=== PATIENT | male | born 1975 | race American Indian/Alaskan Native ===

== ENCOUNTER 2017-07-16 02:27 | Inpatient (IN) | payer OTHER ==
[2017-07-16 04:14] LABS: Basophils % (Auto) 0.7 % (0.0-1.8); Eosinophils % (Auto) 4.6 % (0.0-4.3); Hemoglobin 14.6 gm/dl (11.8-15.2); Mean Corpuscular HGB Conc 33 % (32-34); Mean Corpuscular Hemoglobin 29 pg (28-32); Mean Corpuscular Volume 89 fl (84-94); Platelet Count 276 K/mm3 (140-440); Red Blood Count 4.96 M/mm3 (3.65-5.03); Red Cell Distribution Width 13.3 % (13.2-15.2); White Blood Count 10.5 K/mm3 (4.5-11.0)
[2017-07-16 04:37] LABS: Alanine Aminotransferase 19 units/L (7-56); Albumin 3.9 g/dL (3.9-5); Albumin/Globulin Ratio 1.1 %; Alkaline Phosphatase 62 units/L (35-129); Anion Gap 16 mmol/L; BUN/Creatinine Ratio 11; Blood Urea Nitrogen 9 mg/dL (9-20); Calcium 8.6 mg/dL (8.4-10.2); Carbon Dioxide 26 mmol/L (22-30); Chloride 97.7 mmol/L (98-107); Glucose 319 mg/dL (75-100); Potassium 4.1 mmol/L (3.6-5.0); Sodium 136 mmol/L (137-145); Total Protein 7.3 g/dL (6.3-8.2)
[2017-07-16 04:44] LABS: Bilirubin,Urine Negative (Negative); Blood,Urine Negative (Negative); Ketones,Urine Negative (Negative); Nitrite,Urine Negative (Negative); Protein,Urine <15 mg/dL mg/dL (Negative); Urobilinogen,Urine < 2.0 mg/dL (<2.0)
[2017-07-16 04:45] LABS: Leukocyte Esterase,Urine Negative (Negative)
[2017-07-16 05:05] LABS: Lipase 649 units/L (13-60)
[2017-07-16] MEDS ORDERED: ZOFRAN IV ONE (06:37)
[2017-07-16] MEDS ORDERED: SUBLIMAZE IV ONE (06:37)
[2017-07-16] MEDS ORDERED: BENTYL IM ONE (06:37)
[2017-07-16] MEDS ORDERED: NACL 0.9% 1000 ML 1,000 ML IV ONE (06:37)
--- NOTE | 2017-07-16 06:42 | Emergency Department Report ---
HPI - General Chief Complaint: Abdominal Pain Time Seen by Provider: 07/16/17 06:29 - HPI HPI: Room 5 The patient is a 41-year-old male presenting with a chief complaint of abdominal pain. The patient states for the past 4-5 days she's had pain in the midepigastric, right upper quadrant described as twisting in nature. Patient states the pain has been constant. Patient denies nausea/vomiting but admits to constipation, belching and passing flatus. Patient states she's had a cough which makes his abdomen hurt. Patient missed urinary frequency. The patient gets his pain a score of 10/10 Location: Abdomen, see above Duration: 4-5 days Quality: Twisting Severity:10/10 Modifying factors: [see above] Context: [see above] Mode of transportation: Unknown ED Past Medical Hx - Past Medical History Previous Medical History?: Yes Hx Hypertension: Yes Hx Diabetes: Yes (borderline and on no medication) Hx Deep Vein Thrombosis: Yes Hx Asthma: Yes - Surgical History Past Surgical History?: Yes Additional Surgical History: Cervical discectomy - Family History Family history: no significant - Social History Smoking Status: Former Smoker (none 1 month) Substance Use Type: None - Medications Home Medications: Home Medications Medication Instructions Recorded Confirmed Last Taken Type Warfarin Sodium [Coumadin] 6 mg PO QDAY #30 tablet 01/19/14 01/29/14 01/29/14 Rx oxyCODONE /ACETAMINOPHEN [Percocet 1 tab PO Q6HR PRN #14 tablet 01/29/14 Unknown Rx 5/325 mg] HYDROcodone/APAP 10-325 [[place] 1 each PO Q6HR PRN #16 tablet 08/30/14 Unknown Rx 10-325 mg TAB] Sulfamethoxazole/Trimethoprim 1 each PO Q12H #20 tablet 08/30/14 Unknown Rx [Bactrim Ds] Acetaminophen/Codeine [Tylenol #3] 1 tab PO Q6H PRN #6 tab 08/15/16 Unknown Rx Cephalexin [Keflex] 500 mg PO Q8HR #15 cap 08/15/16 Unknown Rx ED Review of Systems ROS: Stated complaint: ABD PAIN Other details as noted in HPI Comment: All other systems reviewed and negative Constitutional: denies: chills, fever Eyes: denies: eye pain, eye discharge, vision change ENT: denies: ear pain, throat pain Respiratory: cough Cardiovascular: denies: chest pain, palpitations Endocrine: no symptoms reported Gastrointestinal: abdominal pain, constipation. denies: nausea, vomiting Genitourinary: frequency Musculoskeletal: denies: back pain, joint swelling, arthralgia Skin: denies: rash, lesions Neurological: denies: headache, weakness, paresthesias Psychiatric: denies: anxiety, depression Hematological/Lymphatic: denies: easy bleeding, easy bruising Physical Exam - Physical Exam Vital Signs: Vital Signs 07/16/17 07/16/17 07/16/17 02:33 04:12 04:14 Temperature 99 F Pulse Rate 80 Respiratory 18 Rate Blood Pressure 117/77 119/81 Blood Pressure 117/71 [Right] O2 Sat by Pulse 98 100 99 Oximetry 07/16/17 07/16/17 07/16/17 04:16 04:18 04:20 Temperature Pulse Rate Respiratory Rate Blood Pressure 119/81 119/81 119/81 Blood Pressure [Right] O2 Sat by Pulse 95 96 95 Oximetry 07/16/17 07/16/17 07/16/17 04:22 04:24 04:26 Temperature Pulse Rate Respiratory Rate Blood Pressure 119/81 119/81 119/81 Blood Pressure [Right] O2 Sat by Pulse 97 96 97 Oximetry 07/16/17 07/16/17 07/16/17 04:28 04:30 04:32 Temperature Pulse Rate Respiratory Rate Blood Pressure 119/81 119/81 119/81 Blood Pressure [Right] O2 Sat by Pulse 97 98 98 Oximetry 07/16/17 07/16/17 07/16/17 04:34 04:35 04:36 Temperature Pulse Rate Respiratory 18 Rate Blood Pressure 119/81 119/81 Blood Pressure [Right] O2 Sat by Pulse 98 99 98 Oximetry 07/16/17 07/16/17 07/16/17 04:38 04:40 04:42 Temperature Pulse Rate Respiratory Rate Blood Pressure 119/81 119/81 119/81 Blood Pressure [Right] O2 Sat by Pulse 98 97 95 Oximetry 07/16/17 07/16/17 07/16/17 04:44 04:46 04:48 Temperature Pulse Rate Respiratory Rate Blood Pressure 119/81 119/81 119/81 Blood Pressure [Right] O2 Sat by Pulse 97 98 98 Oximetry 07/16/17 07/16/17 04:50 04:52 Temperature Pulse Rate Respiratory Rate Blood Pressure 119/81 119/81 Blood Pressure [Right] O2 Sat by Pulse 98 98 Oximetry Physical Exam: GENERAL: The patient is well-developed well-nourished male lying on stretcher not appearing to be in acute distress. [] HEENT: Normocephalic. Atraumatic. Extraocular motions are intact. Patient has moist mucous membranes. NECK: Supple. Trachea midline CHEST/LUNGS: Clear to auscultation. There is no respiratory distress noted. HEART/CARDIOVASCULAR: Regular. There is no tachycardia. There is no gallop rub or murmur. ABDOMEN: Abdomen is soft, with tenderness to palpation in the right upper quadrant and epigastric region. There is no tenderness elsewhere in the abdomen. There is no voluntary guarding. Patient has normal bowel sounds. There is no abdominal distention. SKIN: There is no rash. There is no edema. There is no diaphoresis. NEURO: The patient is awake, alert, and oriented. The patient is cooperative. The patient has normal speech MUSCULOSKELETAL:There is no evidence of acute injury. ED Course Vital Signs 07/16/17 07/16/17 07/16/17 02:33 04:12 04:14 Temperature 99 F Pulse Rate 80 Respiratory 18 Rate Blood Pressure 117/77 119/81 Blood Pressure 117/71 [Right] O2 Sat by Pulse 98 100 99 Oximetry 07/16/17 07/16/17 07/16/17 04:16 04:18 04:20 Temperature Pulse Rate Respiratory Rate Blood Pressure 119/81 119/81 119/81 Blood Pressure [Right] O2 Sat by Pulse 95 96 95 Oximetry 07/16/17 07/16/17 07/16/17 04:22 04:24 04:26 Temperature Pulse Rate Respiratory Rate Blood Pressure 119/81 119/81 119/81 Blood Pressure [Right] O2 Sat by Pulse 97 96 97 Oximetry 07/16/17 07/16/17 07/16/17 04:28 04:30 04:32 Temperature Pulse Rate Respiratory Rate Blood Pressure 119/81 119/81 119/81 Blood Pressure [Right] O2 Sat by Pulse 97 98 98 Oximetry 07/16/17 07/16/17 07/16/17 04:34 04:35 04:36 Temperature Pulse Rate Respiratory 18 Rate Blood Pressure 119/81 119/81 Blood Pressure [Right] O2 Sat by Pulse 98 99 98 Oximetry 07/16/17 07/16/17 07/16/17 04:38 04:40 04:42 Temperature Pulse Rate Respiratory Rate Blood Pressure 119/81 119/81 119/81 Blood Pressure [Right] O2 Sat by Pulse 98 97 95 Oximetry 07/16/17 07/16/17 07/16/17 04:44 04:46 04:48 Temperature Pulse Rate Respiratory Rate Blood Pressure 119/81 119/81 119/81 Blood Pressure [Right] O2 Sat by Pulse 97 98 98 Oximetry 07/16/17 07/16/17 04:50 04:52 Temperature Pulse Rate Respiratory Rate Blood Pressure 119/81 119/81 Blood Pressure [Right] O2 Sat by Pulse 98 98 Oximetry ED Medical Decision Making - Lab Data Result diagrams: 07/16/17 03:47 07/16/17 03:47 Laboratory Tests 07/16/17 07/16/17 07/16/17 03:47 03:47 03:48 WBC 10.5 RBC 4.96 Hgb 14.6 Hct 44.0 MCV 89 MCH 29 MCHC 33 RDW 13.3 Plt Count 276 Lymph % (Auto) 24.3 [place] % (Auto) 7.1 Eos % (Auto) 4.6 H Baso % (Auto) 0.7 Lymph # 2.5 Nance # 0.7 Eos # 0.5 H Baso # 0.1 Seg Neutrophils % 63.3 Seg Neutrophils # 6.6 Sodium 136 L Potassium 4.1 Chloride 97.7 L Carbon Dioxide 26 Anion Gap 16 BUN 9 Creatinine 0.8 Estimated GFR > 60 BUN/Creatinine Ratio 11 Glucose 319 H Calcium 8.6 Total Bilirubin 0.50 AST 14 ALT 19 Alkaline Phosphatase 62 Total Protein 7.3 Albumin 3.9 Albumin/Globulin Ratio 1.1 Lipase 649 H Urine Color Yellow Urine Turbidity Cloudy Urine pH 5.0 Ur Specific [place] 1.030 Urine Protein <15 mg/dl Urine Glucose (UA) >500 Urine Ketones Negative Urine Blood Negative Urine Nitrite Negative Ur Reducing Substances Not Reportable Urine Bilirubin Negative Urine Ictotest Not Reportable Urine Urobilinogen < 2.0 Ur Leukocyte Esterase Negative Urine WBC (Auto) 1.0 Urine RBC (Auto) 1.0 U Epithel Cells (Auto) 1.0 - EKG Data -: EKG Interpreted by [place] EKG shows normal: sinus rhythm Rate: normal - EKG Data When compared to previous EKG there are: previous EKG unavailable Interpretation: nonspecific ST-T wave maryam (T-wave inversion in lead 3) - Radiology Data Radiology results: report reviewed (right upper quadrant ultrasound), image reviewed (chest x-ray, right upper quadrant ultrasound) interpreted by me: Chest x-ray-no focal infiltrates, no pneumothorax Right upper quadrant ultrasound (regular radiologist)-sludge in the gallbladder without additional findings of cholecystitis. Consider nuclear medicine hepatobiliary scan for more specific evaluation is warranted. - Differential Diagnosis biliary pancreatitis, pancreatitis, gastritis, small bowel obstruction Critical care attestation.: If time is entered above; I have spent that time in minutes in the direct care of this critically ill patient, excluding procedure time. ED Disposition Clinical Impression: Acute pancreatitis, Acute abdominal pain Disposition: OP ADMIT IP TO THIS HOSP Is pt being admited?: Yes Does the pt Need Aspirin: No Condition: Fair Referrals: PRIMARY CARE, [Primary Care Provider] - 3-5 Days Time of Disposition: 08:35 (hospitalist paged)
[2017-07-16 07:35] LABS: INR 0.97 (0.87-1.13)
[2017-07-16 07:36] LABS: Partial Thromboplastin Time 28.1 Sec. (24.2-36.6)
--- NOTE | 2017-07-16 08:11 | XRay Report ---
ROUTINE CHEST, TWO VIEWS: History: Dyspnea. PA and lateral views demonstrate the heart and mediastinal contour to be of normal size and shape. The lungs are clear and fully expanded and the soft tissues and bony structures are normal. IMPRESSION: Normal study.
--- NOTE | 2017-07-16 08:25 | Ultrasound Report ---
FINAL REPORT EXAM: US ABDOMEN LIMITED HISTORY: right upper quadrant abdominal pain COMPARISONS: None FINDINGS: Grayscale and color Doppler ultrasound evaluation of the right upper abdomen Liver is normal in size and contour. Hepatic parenchymal echogenicity is diffusely increased with focal sparing adjacent to the gallbladder. No parenchymal lesion identified. No intra or extrahepatic biliary ductal dilatation. The common duct measures approximately 5 millimeters in caliber. Layering sludge is present within the gallbladder. No focal echogenic shadowing foci to suggest cholelithiasis. Gallbladder wall measures up to 2 millimeters in thickness. No pericholecystic edema identified. Imaged portion of the pancreatic head is sonographically unremarkable. The remainder of the pancreas is not well seen secondary to overlying bowel gas. The imaged portion of the abdominal aorta is unremarkable. No abdominal ascites or free fluid in Morison's pouch. The right kidney measures up to 12.8 cm in length and is without hydronephrosis or echogenic shadowing foci to suggest nephrolithiasis. Interpolar corticomedullary heterogeneous prominence with internal flow on color Doppler measures approximately 3.6 x 2.8 x 3.6 cm. IMPRESSION: Sludge in the gallbladder without additional findings of cholecystitis. Consider nuclear medicine hepatobiliary scan for more specific evaluation as warranted. Hepatic steatosis. Right kidney interpolar 3.6 centimeter mass versus cortical anatomic variant. Multi phase renal CT versus MRI with contrast is recommended for further evaluation.
--- NOTE | 2017-07-16 09:24 | History and Physical Report ---
<STALIN CHARLES - Last Filed: 07/16/17 15:32> History of Present Illness Date of examination: 07/16/17 Date of admission: 07/16/2017 Chief complaint: Abdominal pain History of present illness: Patient is a 41-year-old Afriacn [place] male with past medical history diabetes mellitus who presenting to the emergency department with a chief complaint of abdominal pain. He began having intermittent RUQ abdominal pain that initially felt like gas pains but it has now progressed to being nearly constant. For the Past Six days of coughing up mucus. Finding it hard to talk or breath a times. Feeling pressure on his stomach; like gas is building up and having very little stool, tried pushing forcefully not helping. Patient stated that belching throughout the day even when i don't drink anything. Patient to took stool softener and magnesium citrate with improvement, just a small amount of stool today 7AM. His last bowel movement was over 7 days ago. Currently, the pain is described as a intermittently sharp and well localized. The intensity of the pain has been increasing over the past two days and rated his pain level score of 10/10 at present time. He denies a recent history of fever, jaundice, pruritis, diarrhea, hemoptysis, melena, or hematochezia. He denies a known history of, colon cancer, peptic ulcer disease, gastritis, acid reflux. He has history of cholecystectomy. He denies smoking and alcohol consumption. h Past History Past Medical History: diabetes Past Surgical History: No surgical history Social history: denies: smoking, alcohol abuse Family history: hypertension Medications and Allergies Allergies Allergy/AdvReac Type Severity Reaction Status Date / Time shellfish derived Allergy Angioedema Verified 08/15/16 00:27 Home Medications Medication Instructions Recorded Confirmed Last Taken Type No Known Home Medications [No 07/16/17 07/16/17 Unknown History Reported Home Medications] Active Meds: Active Medications Acetaminophen (Tylenol) 650 mg PO Q4H PRN PRN Reason: Pain MILD(1-3)/Fever >100.5/VILLALOBOS Bisacodyl (Dulcolax) 10 mg AR QDAY PRN PRN Reason: Constipation unrelieved by MOM Enoxaparin Sodium (Lovenox) 40 mg SUB-Q DAILY JEREMIAH Sodium Chloride (Nacl 0.9% 1000 Ml) 1,000 mls @ 250 mls/hr IV ONCE ONE Stop: 07/16/17 10:36 Last Admin: 07/16/17 07:30 Dose: 250 mls/hr Sodium Chloride (Nacl 0.9% 1000 Ml) 1,000 mls @ 125 mls/hr IV DIRECT JEREMIAH Review of Systems Constitutional: no weight gain, no fever, no chills Ears, nose, mouth and throat: no ear discharge, no tinnitis, no decreased hearing, no nasal congestion, no nasal discharge Cardiovascular: no orthopnea, no palpitations, no rapid/irregular heart beat, no syncope Respiratory: shortness of breath, no excessive sputum Gastrointestinal: abdominal pain, nausea, constipation, change in bowel habits, heartburn, indigestion, belching, excessive gas Rectal: no incontinence, no bleeding Musculoskeletal: no neck pain Integumentary: no redness, no sores, no jaundice Neurological: no weakness, no parathesias Psychiatric: no change in sleep habits, no sleep disturbances, no insomnia, no hypersomnia Endocrine: no polyphagia, no excessive thirst, no polydipsia, no polyuria Hematologic/Lymphatic: no easy bruising, no easy bleeding Allergic/Immunologic: no urticaria, no allergic rhinitis Exam - Constitutional Vitals: Temp Pulse Resp BP Pulse Ox 99 F 69 18 123/86 97 07/16/17 02:33 07/16/17 07:38 07/16/17 07:38 07/16/17 07:38 07/16/17 07:38 General appearance: Present: no acute distress - EENT Eyes: Present: PERRL ENT: hearing intact - Neck Neck: Present: supple - Respiratory Respiratory effort: normal Respiratory: bilateral: CTA - Cardiovascular Rhythm: regular Heart Sounds: Present: S1 & S2 - Abdominal General gastrointestinal: Present: soft, non-tender Localized gastrointestinal: tender: RUQ Male genitourinary: Present: deferred - Rectal Rectal Exam: deferred - Integumentary Integumentary: Present: clear, warm, dry - Musculoskeletal Musculoskeletal: strength equal bilaterally - Psychiatric Psychiatric: appropriate mood/affect - Neurologic Neurologic: moves all extremities - Allied Health Allied health notes reviewed: nursing Results - Labs CBC & Chem 7: 07/16/17 03:47 07/16/17 03:47 Labs: Laboratory Last Values WBC 10.5 K/mm3 (4.5-11.0) 07/16/17 03:47 RBC 4.96 M/mm3 (3.65-5.03) 07/16/17 03:47 Hgb 14.6 gm/dl (11.8-15.2) 07/16/17 03:47 Hct 44.0 % (35.5-45.6) 07/16/17 03:47 MCV 89 fl (84-94) 07/16/17 03:47 MCH 29 pg (28-32) 07/16/17 03:47 MCHC 33 % (32-34) 07/16/17 03:47 RDW 13.3 % (13.2-15.2) 07/16/17 03:47 Plt Count 276 K/mm3 (140-440) 07/16/17 03:47 Lymph % (Auto) 24.3 % (13.4-35.0) 07/16/17 03:47 [place] % (Auto) 7.1 % (0.0-7.3) 07/16/17 03:47 Eos % (Auto) 4.6 % (0.0-4.3) H 07/16/17 03:47 Baso % (Auto) 0.7 % (0.0-1.8) 07/16/17 03:47 Lymph # 2.5 K/mm3 (1.2-5.4) 07/16/17 03:47 [place] # 0.7 K/mm3 (0.0-0.8) 07/16/17 03:47 Eos # 0.5 K/mm3 (0.0-0.4) H 07/16/17 03:47 Baso # 0.1 K/mm3 (0.0-0.1) 07/16/17 03:47 Seg Neutrophils % 63.3 % (40.0-70.0) 07/16/17 03:47 Seg Neutrophils # 6.6 K/mm3 (1.8-7.7) 07/16/17 03:47 PT 13.4 Sec. (12.2-14.9) 07/16/17 07:12 INR 0.97 (0.87-1.13) 07/16/17 07:12 APTT 28.1 Sec. (24.2-36.6) 07/16/17 07:12 Sodium 136 mmol/L (137-145) L 07/16/17 03:47 Potassium 4.1 mmol/L (3.6-5.0) 07/16/17 03:47 Chloride 97.7 mmol/L (98-107) L 07/16/17 03:47 Carbon Dioxide 26 mmol/L (22-30) 07/16/17 03:47 Anion Gap 16 mmol/L 07/16/17 03:47 BUN 9 mg/dL (9-20) 07/16/17 03:47 Creatinine 0.8 mg/dL (0.8-1.5) 07/16/17 03:47 Estimated GFR > 60 ml/min 07/16/17 03:47 BUN/Creatinine Ratio 11 % 07/16/17 03:47 Glucose 319 mg/dL (75-100) H 07/16/17 03:47 Calcium 8.6 mg/dL (8.4-10.2) 07/16/17 03:47 Total Bilirubin 0.50 mg/dL (0.1-1.2) 07/16/17 03:47 AST 14 units/L (5-40) 07/16/17 03:47 ALT 19 units/L (7-56) 07/16/17 03:47 Alkaline Phosphatase 62 units/L (35-129) 07/16/17 03:47 Total Protein 7.3 g/dL (6.3-8.2) 07/16/17 03:47 Albumin 3.9 g/dL (3.9-5) 07/16/17 03:47 Albumin/Globulin Ratio 1.1 % 07/16/17 03:47 Lipase 649 units/L (13-60) H 07/16/17 03:47 Urine Color Yellow (Yellow) 07/16/17 03:48 Urine Turbidity Cloudy (Clear) 07/16/17 03:48 Urine pH 5.0 (5.0-7.0) 07/16/17 03:48 Ur Specific [place] 1.030 (1.003-1.030) 07/16/17 03:48 Urine Protein <15 mg/dl mg/dL (Negative) 07/16/17 03:48 Urine Glucose (UA) >500 mg/dL (Negative) 07/16/17 03:48 Urine Ketones Negative mg/dL (Negative) 07/16/17 03:48 Urine Blood Negative (Negative) 07/16/17 03:48 Urine Nitrite Negative (Negative) 07/16/17 03:48 Ur Reducing Substances Not Reportable 07/16/17 03:48 Urine Bilirubin Negative (Negative) 07/16/17 03:48 Urine Ictotest Not Reportable 07/16/17 03:48 Urine Urobilinogen < 2.0 mg/dL (<2.0) 07/16/17 03:48 Ur Leukocyte Esterase Negative (Negative) 07/16/17 03:48 Urine WBC (Auto) 1.0 /HPF (0.0-6.0) 07/16/17 03:48 Urine RBC (Auto) 1.0 /HPF (0.0-6.0) 07/16/17 03:48 U Epithel Cells (Auto) 1.0 /HPF (0-13.0) 07/16/17 03:48 Assessment and Plan Assessment and plan: Patient is a 41-year-old Afriacn [place] male with past medical history diabetes mellitus who presenting to the emergency department with a chief complaint of abdominal pain. He began having intermittent RUQ abdominal pain that initially felt like gas pains but it has now progressed to being nearly constant. For the Past Six days of coughing up mucus. Finding it hard to talk or breath a times. Acute Pancreatitis CT of the abdomen showed Sludge in the gallbladder without cholecystitis Nothing by mouth Rest the gut IV Fluid hydration Pain control with hydromorphone Antiemetic Elevated serum lipase Secondary to pancreatitis Mild hyponatremia started on IV fluid that will correct it. Closely monitor electrolytes Diabetes mellitus Accu-Chek before meals and at bedtime Sliding scale insulin/NovoLog ADA carbohydrate consistent diet We will obtained A1C level DVT prophylaxis Lovenox Advance Directives: Yes VTE prophylaxis?: Chemical Contraindication Mechanical VTE Prophylaxis: Treatment Not Indicated Plan of care discussed with patient/family: Yes <TAD WATTS - Last Filed: 07/16/17 17:39> History of Present Illness Date of admission: 07/16/17 09:57 Medications and Allergies Active Meds: Active Medications Acetaminophen (Tylenol) 650 mg PO Q4H PRN PRN Reason: Pain MILD(1-3)/Fever >100.5/VILLALOBOS Bisacodyl (Dulcolax) 10 mg AR QDAY PRN PRN Reason: Constipation unrelieved by MOM Dextrose (D50w (25gm) Syringe) 50 ml IV PRN PRN PRN Reason: Hypoglycemia Enoxaparin Sodium (Lovenox) 40 mg SUB-Q DAILY [facility] Last Admin: 07/16/17 10:55 Dose: 40 mg Famotidine (Pepcid) 20 mg IV BID JEREMIAH Last Admin: 07/16/17 16:14 Dose: 20 mg Hydromorphone HCl (Dilaudid) 1 mg IV Q4H PRN PRN Reason: Pain , Severe (7-10) Sodium Chloride (Nacl 0.9% 1000 Ml) 1,000 mls @ 125 mls/hr IV DIRECT JEREMIAH Last Admin: 07/16/17 11:34 Dose: 125 mls/hr Insulin Aspart (Novolog) 0 units SUB-Q AC JEREMIAH PRN Reason: Protocol Last Admin: 07/16/17 12:35 Dose: Not Given Insulin Aspart (Novolog) 0 units SUB-Q QHS JEREMIAH PRN Reason: Protocol Ondansetron HCl (Zofran) 4 mg IM Q4H PRN PRN Reason: Nausea And Vomiting Exam - Constitutional Vitals: Temp Pulse Resp BP Pulse Ox 98.3 F 65 20 110/76 94 07/16/17 16:32 07/16/17 16:32 07/16/17 16:32 07/16/17 16:32 07/16/17 16:32 Results - Labs CBC & Chem 7: 07/16/17 03:47 07/16/17 03:47 Labs: Laboratory Last Values WBC 10.5 K/mm3 (4.5-11.0) 07/16/17 03:47 RBC 4.96 M/mm3 (3.65-5.03) 07/16/17 03:47 Hgb 14.6 gm/dl (11.8-15.2) 07/16/17 03:47 Hct 44.0 % (35.5-45.6) 07/16/17 03:47 MCV 89 fl (84-94) 07/16/17 03:47 MCH 29 pg (28-32) 07/16/17 03:47 MCHC 33 % (32-34) 07/16/17 03:47 RDW 13.3 % (13.2-15.2) 07/16/17 03:47 Plt Count 276 K/mm3 (140-440) 07/16/17 03:47 Lymph % (Auto) 24.3 % (13.4-35.0) 07/16/17 03:47 [place] % (Auto) 7.1 % (0.0-7.3) 07/16/17 03:47 Eos % (Auto) 4.6 % (0.0-4.3) H 07/16/17 03:47 Baso % (Auto) 0.7 % (0.0-1.8) 07/16/17 03:47 Lymph # 2.5 K/mm3 (1.2-5.4) 07/16/17 03:47 [place] # 0.7 K/mm3 (0.0-0.8) 07/16/17 03:47 Eos # 0.5 K/mm3 (0.0-0.4) H 07/16/17 03:47 Baso # 0.1 K/mm3 (0.0-0.1) 07/16/17 03:47 Seg Neutrophils % 63.3 % (40.0-70.0) 07/16/17 03:47 Seg Neutrophils # 6.6 K/mm3 (1.8-7.7) 07/16/17 03:47 PT 13.4 Sec. (12.2-14.9) 07/16/17 07:12 INR 0.97 (0.87-1.13) 07/16/17 07:12 APTT 28.1 Sec. (24.2-36.6) 07/16/17 07:12 Sodium 136 mmol/L (137-145) L 07/16/17 03:47 Potassium 4.1 mmol/L (3.6-5.0) 07/16/17 03:47 Chloride 97.7 mmol/L (98-107) L 07/16/17 03:47 Carbon Dioxide 26 mmol/L (22-30) 07/16/17 03:47 Anion Gap 16 mmol/L 07/16/17 03:47 BUN 9 mg/dL (9-20) 07/16/17 03:47 Creatinine 0.8 mg/dL (0.8-1.5) 07/16/17 03:47 Estimated GFR > 60 ml/min 07/16/17 03:47 BUN/Creatinine Ratio 11 % 11/15/17 03:47 Glucose 319 mg/dL (75-100) H 07/16/17 03:47 POC Glucose 136 (70-105) H 07/16/17 16:49 Calcium 8.6 mg/dL (8.4-10.2) 07/16/17 03:47 Total Bilirubin 0.50 mg/dL (0.1-1.2) 07/16/17 03:47 AST 14 units/L (5-40) 07/16/17 03:47 ALT 19 units/L (7-56) 07/16/17 03:47 Alkaline Phosphatase 62 units/L (35-129) 07/16/17 03:47 Total Protein 7.3 g/dL (6.3-8.2) 07/16/17 03:47 Albumin 3.9 g/dL (3.9-5) 07/16/17 03:47 Albumin/Globulin Ratio 1.1 % 07/16/17 03:47 Lipase 649 units/L (13-60) H 07/16/17 03:47 Urine Color Yellow (Yellow) 07/16/17 03:48 Urine Turbidity Cloudy (Clear) 07/16/17 03:48 Urine pH 5.0 (5.0-7.0) 07/16/17 03:48 Ur Specific [place] 1.030 (1.003-1.030) 07/16/17 03:48 Urine Protein <15 mg/dl mg/dL (Negative) 07/16/17 03:48 Urine Glucose (UA) >500 mg/dL (Negative) 07/16/17 03:48 Urine Ketones Negative mg/dL (Negative) 07/16/17 03:48 Urine Blood Negative (Negative) 07/16/17 03:48 Urine Nitrite Negative (Negative) 07/16/17 03:48 Ur Reducing Substances Not Reportable 07/16/17 03:48 Urine Bilirubin Negative (Negative) 07/16/17 03:48 Urine Ictotest Not Reportable 07/16/17 03:48 Urine Urobilinogen < 2.0 mg/dL (<2.0) 07/16/17 03:48 Ur Leukocyte Esterase Negative (Negative) 07/16/17 03:48 Urine WBC (Auto) 1.0 /HPF (0.0-6.0) 07/16/17 03:48 Urine RBC (Auto) 1.0 /HPF (0.0-6.0) 07/16/17 03:48 U Epithel Cells (Auto) 1.0 /HPF (0-13.0) 07/16/17 03:48 Assessment and Plan Assessment and plan: I saw and evaluated the patient. I agree with the findings and the plan of care as documented in the Nurse Practitioner's~note, with the following corrections and additions. Ice chips Plan of care d/w the patient
[2017-07-16] MEDS ORDERED: ZOFRAN IM PRN (10:00)
[2017-07-16] MEDS ORDERED: D50W (25GM) Syringe IV PRN (10:00)
[2017-07-16] MEDS ORDERED: TYLENOL PO PRN (10:00)
[2017-07-16] MEDS ORDERED: DULCOLAX PR PRN (10:00)
[2017-07-16] MEDS ORDERED: LOVENOX SUB-Q ONE (10:50)
[2017-07-16] MEDS: LOVENOX SUB-Q SCH (10:55)
[2017-07-16] MEDS: NACL 0.9% 1000 ML 1,000 ML IV SCH ×2 (11:34→21:59)
[2017-07-16] MEDS: NOVOLOG SUB-Q SCH ×3 (12:35→21:58)
[2017-07-16] MEDS ORDERED: DILAUDID IV PRN (14:56)
[2017-07-16] MEDS: PEPCID IV SCH ×2 (16:14→21:30)
[2017-07-16] MEDS ORDERED: PROTONIX IV SCH (22:00)
[2017-07-17 06:53] LABS: Basophils % (Auto) 0.8 % (0.0-1.8); Eosinophils % (Auto) 7.5 % (0.0-4.3); Hemoglobin 14.3 gm/dl (11.8-15.2); Mean Corpuscular HGB Conc 33 % (32-34); Mean Corpuscular Hemoglobin 29 pg (28-32); Mean Corpuscular Volume 89 fl (84-94); Platelet Count 271 K/mm3 (140-440); Red Blood Count 4.94 M/mm3 (3.65-5.03); White Blood Count 6.4 K/mm3 (4.5-11.0)
[2017-07-17 07:18] LABS: Anion Gap 14 mmol/L; BUN/Creatinine Ratio 11; Blood Urea Nitrogen 9 mg/dL (9-20); Calcium 8.4 mg/dL (8.4-10.2); Carbon Dioxide 26 mmol/L (22-30); Chloride 103.4 mmol/L (98-107); Glucose 139 mg/dL (75-100); Potassium 4.9 mmol/L (3.6-5.0); Sodium 138 mmol/L (137-145)
[2017-07-17 07:27] LABS: Lipase 465 units/L (13-60)
[2017-07-17] MEDS: NOVOLOG SUB-Q SCH ×4 (07:55→22:00)
[2017-07-17] MEDS: LOVENOX SUB-Q SCH (10:03)
[2017-07-17] MEDS: PEPCID IV SCH ×2 (10:03→22:36)
[2017-07-17] MEDS ORDERED: ZITHROMAX PO SCH (11:00)
--- NOTE | 2017-07-17 11:35 | Discharge Summary ---
Providers - Providers Date of Admission: 07/16/17 09:57 Date of discharge: 07/17/17 Attending physician: ANAY AHMADI Primary care physician: MACHINE EGG WASHER Hospitalization Condition: Fair Hospital course: Patient is a 41-year-old Afriacn [place] male with past medical history diabetes mellitus who presenting to the emergency department with a chief complaint of abdominal pain. He also c/o the Past Six days of coughing up mucus. He noted to have elevated lipase, abdominal US showed Sludge in the gallbladder without cholecystitis . He was admitted for further evaluation and management. Discharge diagnosis and management; /Acute Pancreatitis CT of the abdomen showed Sludge in the gallbladder without cholecystitis cont aggressive IV Fluid hydration And adequate Pain control with hydromorphone Antiemetic as needed, Consulted GS and recommended MRCP negative MRCP result, will start on full liquid diet /Elevated serum lipase Secondary to pancreatitis, trending down / Mild hyponatremia Likely from dehydration, improved with IV fluids /Diabetes mellitus 2, uncontrolled Placed on Accu-Chek with SSI A1c is 10.4 /Acute bronchitis placed on zithromax iv Disposition: DC-01 TO HOME OR SELFCARE Time spent for discharge: 32 minutes Core Measure Documentation - Palliative Care Palliative Care/ Comfort Measures: Not Applicable - Core Measures Any of the following diagnoses?: none Exam - Constitutional Vitals: Temp Pulse Resp BP Pulse Ox 99.0 F 68 20 117/75 94 07/17/17 08:13 07/17/17 08:13 07/17/17 08:13 07/17/17 08:13 07/17/17 08:13 General appearance: Present: no acute distress, well-nourished - EENT Eyes: Present: PERRL ENT: hearing intact, clear oral mucosa - Neck Neck: Present: supple, normal ROM - Respiratory Respiratory effort: normal Respiratory: bilateral: CTA - Cardiovascular Heart Sounds: Present: S1 & S2. Absent: rub, click - Extremities Extremities: pulses symmetrical, No edema Peripheral Pulses: within normal limits - Abdominal General gastrointestinal: Present: soft, non-distended, normal bowel sounds - Integumentary Integumentary: Present: clear, warm, dry - Musculoskeletal Musculoskeletal: gait normal, strength equal bilaterally - Psychiatric Psychiatric: appropriate mood/affect, intact judgment & insight - Neurologic Neurologic: CNII-XII intact, moves all extremities Plan Activity: advance as tolerated Weight Bearing Status: Weight Bear as Tolerated Diet: low fat, low salt, diabetic Follow up with: PRIMARY CARE, [Primary Care Provider] - 3-5 Days Prescriptions: Azithromycin [Zithromax TAB] 500 mg PO QDAY #5 tablet glipiZIDE [Glucotrol] 5 mg PO BIDDIAB #60 tablet Ibuprofen 800 mg PO Q8H PRN #20 tablet PRN Reason: Pain metFORMIN [Glucophage] 500 mg PO BIDDIAB #60 tablet
--- NOTE | 2017-07-17 13:43 | Progress Note ---
Assessment and Plan Full consult dictated 41 y/o male admitted with cc of RUQ abd pain GB U/S - GB sludge, no evidence of cholecystitis elevated Lipase r/o biliary pancreatitis rec NPO IVF hydration f/u amylase and lipase in am will follow Laboratory Tests 07/16/17 07/17/17 07/17/17 03:47 06:14 06:14 WBC 6.4 Hgb 14.3 Hct 44.0 Sodium 138 Potassium 4.9 Chloride 103.4 Carbon Dioxide 26 Anion Gap 14 BUN 9 Creatinine 0.8 Glucose 139 H Total Bilirubin 0.50 AST 14 ALT 19 Alkaline Phosphatase 62 Lipase 465 H Objective Vital Signs - 12hr 07/17/17 08:13 Temperature 99.0 F Pulse Rate 68 Respiratory 20 Rate Blood Pressure 117/75 O2 Sat by Pulse 94 Oximetry - Labs 07/17/17 06:14 07/17/17 06:14 Diabetes panel 07/17/17 07/17/17 Range/Units 06:14 06:14 Sodium 138 (137-145) mmol/L Potassium 4.9 (3.6-5.0) mmol/L Chloride 103.4 (98-107) mmol/L Carbon Dioxide 26 (22-30) mmol/L BUN 9 (9-20) mg/dL Creatinine 0.8 (0.8-1.5) mg/dL Glucose 139 H (75-100) mg/dL Hemoglobin A1c 10.4 H (4-6) % Calcium 8.4 (8.4-10.2) mg/dL Calcium panel 07/17/17 Range/Units 06:14 Calcium 8.4 (8.4-10.2) mg/dL Pituitary panel 07/17/17 Range/Units 06:14 Sodium 138 (137-145) mmol/L Potassium 4.9 (3.6-5.0) mmol/L Chloride 103.4 (98-107) mmol/L Carbon Dioxide 26 (22-30) mmol/L BUN 9 (9-20) mg/dL Creatinine 0.8 (0.8-1.5) mg/dL Glucose 139 H (75-100) mg/dL Calcium 8.4 (8.4-10.2) mg/dL Adrenal panel 07/17/17 Range/Units 06:14 Sodium 138 (137-145) mmol/L Potassium 4.9 (3.6-5.0) mmol/L Chloride 103.4 (98-107) mmol/L Carbon Dioxide 26 (22-30) mmol/L BUN 9 (9-20) mg/dL Creatinine 0.8 (0.8-1.5) mg/dL Glucose 139 H (75-100) mg/dL Calcium 8.4 (8.4-10.2) mg/dL
[2017-07-17] MEDS: D5NS 1,000 ML IV SCH ×2 (13:45→23:33)
--- NOTE | 2017-07-17 14:56 | Progress Note ---
Assessment and Plan /Acute Pancreatitis CT of the abdomen showed Sludge in the gallbladder without cholecystitis placed on Nothing by mouth, consulted GS and recommended MRCP cont aggressive IV Fluid hydration And adequate Pain control with hydromorphone Antiemetic as needed, follow MRCP result /Elevated serum lipase Secondary to pancreatitis, trending down / Mild hyponatremia Likely from dehydration, improved with IV fluids /Diabetes mellitus 2, uncontrolled Placed on Accu-Chek with SSI A1c is 10.4 /Acute bronchitis placed on zithromax iv Brief History: Patient is a 41-year-old Afriacn [place] male with past medical history diabetes mellitus who presenting to the emergency department with a chief complaint of abdominal pain. He also c/o the Past Six days of coughing up mucus. He noted to have elevated lipase, abdominal US showed Sludge in the gallbladder without cholecystitis . He was admitted for further evaluation and management. Subjective Date of service: 07/17/17 Interval history: Pt seen and examined c/o productive cough with yellow/brown sputum c/o RUQ pain, tolerated Clear liquid this am. discussed with GS, recommended to keep pt NPO Objective - Constitutional Vitals: Vital Signs - 12hr 07/17/17 08:13 Temperature 99.0 F Pulse Rate 68 Respiratory 20 Rate Blood Pressure 117/75 O2 Sat by Pulse 94 Oximetry General appearance: Present: no acute distress, well-nourished - EENT Eyes: PERRL, EOM intact ENT: hearing intact, clear oral mucosa Ears: bilateral: normal - Neck Neck: supple, normal ROM - Respiratory Respiratory effort: normal Respiratory: bilateral: CTA - Cardiovascular Rhythm: regular Heart Sounds: Present: S1 & S2. Absent: gallop, rub Extremities: pulses intact, No edema, normal color, Full ROM - Gastrointestinal General gastrointestinal: Present: soft, tender (RUQ), non-distended, normal bowel sounds - Integumentary Integumentary: clear, warm, dry - Musculoskeletal Musculoskeletal: 1, strength equal bilaterally - Neurologic Neurologic: moves all extremities - Psychiatric Psychiatric: memory intact, appropriate mood/affect, intact judgment & insight - Labs CBC & Chem 7: 07/17/17 06:14 07/17/17 06:14 Labs: Abnormal lab results 07/16/17 07/16/17 07/17/17 Range/Units 16:49 21:09 06:08 RDW (13.2-15.2) % Norman % (Auto) (0.0-7.3) % Eos % (Auto) (0.0-4.3) % Eos # (0.0-0.4) K/mm3 Glucose (75-100) mg/dL POC Glucose 136 H 121 H 131 H (70-105) Hemoglobin A1c (4-6) % Amylase (27-131) units/L Lipase (13-60) units/L 07/17/17 07/17/17 07/17/17 Range/Units 06:14 06:14 06:14 RDW 13.0 L (13.2-15.2) % Norman % (Auto) 10.0 H (0.0-7.3) % Eos % (Auto) 7.5 H (0.0-4.3) % Eos # 0.5 H (0.0-0.4) K/mm3 Glucose 139 H (75-100) mg/dL POC Glucose (70-105) Hemoglobin A1c 10.4 H (4-6) % Amylase (27-131) units/L Lipase 465 H (13-60) units/L 07/17/17 07/17/17 Range/Units 06:14 11:25 RDW (13.2-15.2) % Norman % (Auto) (0.0-7.3) % Eos % (Auto) (0.0-4.3) % Eos # (0.0-0.4) K/mm3 Glucose (75-100) mg/dL POC Glucose 155 H (70-105) Hemoglobin A1c (4-6) % Amylase 166 H (27-131) units/L Lipase (13-60) units/L
[2017-07-17] MEDS: GLUCOPHAGE PO SCH (16:39)
[2017-07-17] MEDS: GLUCOTROL PO SCH (16:39)
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
[2017-07-18 06:20] LABS: Alanine Aminotransferase 20 units/L (7-56); Albumin 3.5 g/dL (3.9-5); Albumin/Globulin Ratio 1.1 %; Alkaline Phosphatase 60 units/L (35-129); Amylase 96 units/L (27-131); Anion Gap 15 mmol/L; BUN/Creatinine Ratio 7; Blood Urea Nitrogen 7 mg/dL (9-20); Calcium 8.6 mg/dL (8.4-10.2); Carbon Dioxide 27 mmol/L (22-30); Chloride 103.8 mmol/L (98-107); Glucose 187 mg/dL (75-100); Lipase 187 units/L (13-60); Potassium 4.6 mmol/L (3.6-5.0); Sodium 141 mmol/L (137-145); Total Protein 6.6 g/dL (6.3-8.2)
[2017-07-18] MEDS: GLUCOPHAGE PO SCH ×2 (08:23→17:42)
[2017-07-18] MEDS: GLUCOTROL PO SCH ×2 (08:23→17:41)
[2017-07-18] MEDS: NOVOLOG SUB-Q SCH ×4 (08:24→22:31)
[2017-07-18] MEDS ORDERED: KINEVAC IV ONE ×2 (08:44)
[2017-07-18] MEDS ORDERED: WATER FOR INJ (PF) 10 ML ONE (08:45)
[2017-07-18] MEDS ORDERED: WATER FOR INJ (PF) IV ONE (08:46)
[2017-07-18] MEDS: D5NS 1,000 ML IV SCH (11:50)
[2017-07-18] MEDS: LOVENOX SUB-Q SCH (11:53)
[2017-07-18] MEDS: ZITHROMAX 500 MG in NACL 0.9% 250ML 250 ML IV SCH (11:53)
[2017-07-18] MEDS: PEPCID PO SCH ×2 (11:53→22:26)
--- NOTE | 2017-07-18 12:31 | Progress Note ---
Assessment and Plan Pt feeling well without compl. neg abd pain. Abd soft, non tender resolving biliary pancreatitis. Amylase & Lipase down to almost normal awaiting MRCP results may begin low fat cl liq diet if MRCP neg Selected Entries 07/17/17 15:59 Temperature 98.5 F Pulse Rate 61 Respiratory 18 Rate Blood Pressure 113/84 Laboratory Tests 07/18/17 05:09 Sodium 141 Potassium 4.6 Chloride 103.8 Carbon Dioxide 27 Glucose 187 H Total Bilirubin 0.70 AST 18 ALT 20 Alkaline Phosphatase 60 Amylase 96 Lipase 187 H Objective - Labs 07/17/17 06:14 07/18/17 05:09 Diabetes panel 07/18/17 Range/Units 05:09 Sodium 141 (137-145) mmol/L Potassium 4.6 (3.6-5.0) mmol/L Chloride 103.8 (98-107) mmol/L Carbon Dioxide 27 (22-30) mmol/L BUN 7 L (9-20) mg/dL Creatinine 1.0 (0.8-1.5) mg/dL Glucose 187 H (75-100) mg/dL Calcium 8.6 (8.4-10.2) mg/dL AST 18 (5-40) units/L ALT 20 (7-56) units/L Alkaline Phosphatase 60 (35-129) units/L Total Protein 6.6 (6.3-8.2) g/dL Albumin 3.5 L (3.9-5) g/dL Calcium panel 07/18/17 Range/Units 05:09 Calcium 8.6 (8.4-10.2) mg/dL Albumin 3.5 L (3.9-5) g/dL Pituitary panel 07/18/17 Range/Units 05:09 Sodium 141 (137-145) mmol/L Potassium 4.6 (3.6-5.0) mmol/L Chloride 103.8 (98-107) mmol/L Carbon Dioxide 27 (22-30) mmol/L BUN 7 L (9-20) mg/dL Creatinine 1.0 (0.8-1.5) mg/dL Glucose 187 H (75-100) mg/dL Calcium 8.6 (8.4-10.2) mg/dL Adrenal panel 07/18/17 Range/Units 05:09 Sodium 141 (137-145) mmol/L Potassium 4.6 (3.6-5.0) mmol/L Chloride 103.8 (98-107) mmol/L Carbon Dioxide 27 (22-30) mmol/L BUN 7 L (9-20) mg/dL Creatinine 1.0 (0.8-1.5) mg/dL Glucose 187 H (75-100) mg/dL Calcium 8.6 (8.4-10.2) mg/dL Total Bilirubin 0.70 (0.1-1.2) mg/dL AST 18 (5-40) units/L ALT 20 (7-56) units/L Alkaline Phosphatase 60 (35-129) units/L Total Protein 6.6 (6.3-8.2) g/dL Albumin 3.5 L (3.9-5) g/dL
--- NOTE | 2017-07-18 13:28 | Nuclear Medicine Report ---
HEPATOBILIARY SCAN: Following the injection of the radionuclide, serial scanning was obtained over the right upper quadrant. Initial imaging of the liver demonstrates a relatively normal activity pattern. Progressive concentration of the radionuclide in the bile ducts, with filling of both the gallbladder and small bowel, is identified within a normal time period. IMPRESSION: No obstruction the cystic or common bile duct. Post CCK ejection fraction 39%
--- NOTE | 2017-07-18 16:27 | Progress Note ---
Assessment and Plan /Acute Pancreatitis CT of the abdomen showed Sludge in the gallbladder without cholecystitis cont aggressive IV Fluid hydration And adequate Pain control with hydromorphone Antiemetic as needed, Consulted GS and recommended MRCP negative MRCP result, will start on full liquid diet /Elevated serum lipase Secondary to pancreatitis, trending down / Mild hyponatremia Likely from dehydration, improved with IV fluids /Diabetes mellitus 2, uncontrolled Placed on Accu-Chek with SSI A1c is 10.4 /Acute bronchitis placed on zithromax iv Brief History: Patient is a 41-year-old Afriacn [place] male with past medical history diabetes mellitus who presenting to the emergency department with a chief complaint of abdominal pain. He also c/o the Past Six days of coughing up mucus. He noted to have elevated lipase, abdominal US showed Sludge in the gallbladder without cholecystitis . He was admitted for further evaluation and management. Subjective Date of service: 07/18/17 Interval history: Pt seen and examined Had MRCP and HIDA scan today showed normal study Pt denies any abdominal pain, no N/V Objective - Exam Narrative Exam: General appearance: Present: no acute distress, well-nourished - EENT Eyes: PERRL, EOM intact ENT: hearing intact, clear oral mucosa Ears: bilateral: normal - Neck Neck: supple, normal ROM - Respiratory Respiratory effort: normal Respiratory: bilateral: CTA - Cardiovascular Rhythm: regular Heart Sounds: Present: S1 & S2. Absent: gallop, rub Extremities: pulses intact, No edema, normal color, Full ROM - Gastrointestinal General gastrointestinal: Present: soft, tender (RUQ), non-distended, normal bowel sounds - Integumentary Integumentary: clear, warm, dry - Musculoskeletal Musculoskeletal: 1, strength equal bilaterally - Neurologic Neurologic: moves all extremities - Psychiatric Psychiatric: memory intact, appropriate mood/affect, intact judgment & insight - Constitutional Vitals: Vital Signs - 12hr 07/18/17 10:00 Respiratory 18 Rate - Labs CBC & Chem 7: 07/17/17 06:14 07/18/17 05:09 Labs: Abnormal lab results 07/17/17 07/18/17 07/18/17 Range/Units 21:26 05:09 06:07 BUN 7 L (9-20) mg/dL Glucose 187 H (75-100) mg/dL POC Glucose 140 H 200 H (70-105) Albumin 3.5 L (3.9-5) g/dL Lipase 187 H (13-60) units/L 07/18/17 07/18/17 Range/Units 11:38 16:21 BUN (9-20) mg/dL Glucose (75-100) mg/dL POC Glucose 132 H 188 H (70-105) Albumin (3.9-5) g/dL Lipase (13-60) units/L
--- NOTE | 2017-07-18 17:03 | Magnetic Resonance Report ---
FINAL REPORT EXAM: MR ABDOMEN MRCP HISTORY: r/o CBD stones TECHNIQUE: MRI abdomen MRCP PRIORS: Correlated with the prior ultrasound of July 16, 2017 FINDINGS: Gallbladder is nondistended. No pericholecystic fluid identified. No evidence for cholelithiasis. Common bile duct is normal in size measuring 0.22 centimeters. No filling defects are observed. There is no evidence for intrahepatic biliary dilatation. Pancreatic duct is unremarkable. No focal parenchymal abnormalities are identified in the liver. Spleen is normal in size Kidneys demonstrate no evidence for hydronephrosis. IMPRESSION: No evidence for biliary obstruction or choledocholithiasis No abnormality seen
[2017-07-19] MEDS: NOVOLOG SUB-Q SCH ×2 (07:30→11:30)
[2017-07-19 08:18] VITALS: BP 98/64
[2017-07-19] MEDS: GLUCOPHAGE PO SCH (09:18)
[2017-07-19] MEDS: PEPCID PO SCH (09:18)
[2017-07-19] MEDS: LOVENOX SUB-Q SCH (09:18)
[2017-07-19] MEDS: GLUCOTROL PO SCH (09:18)
[2017-07-19] MEDS: ZITHROMAX 500 MG in NACL 0.9% 250ML 250 ML IV SCH (10:00)
--- NOTE | 2017-07-19 12:59 | Progress Note ---
Assessment and Plan Pt feeling well without compl. dressed and sitting in chair "ready to go home" . sunny cl liq diet Abd soft, non tender MRCP - neg CBD stones resolving biliary pancreatitis surgically stable advance to solid low fat diet at home in am as sunny rto this Friday Selected Entries 07/19/17 08:15 Temperature 98.3 F Pulse Rate 59 L Respiratory 18 Rate Blood Pressure 98/64 Objective Vital Signs - 12hr 07/19/17 07/19/17 08:15 09:28 Temperature 98.3 F Pulse Rate 59 L Respiratory 18 20 Rate Blood Pressure 98/64 O2 Sat by Pulse 97 Oximetry - Labs 07/17/17 06:14 07/18/17 05:09
== END 2017-07-19 13:00 | disposition home or self-care (01) | DRG 439 ==
LOC: ED 02:27 → 3A 09:57
PROVIDERS: ADMIT Internal Medicine; ATTEND Internal Medicine
DX: K85.90 Acute pancreatitis without necrosis or infection, unspecified (principal); E87.1 Hypo-osmolality and hyponatremia; E11.9 Type 2 diabetes mellitus without complications; E86.0 Dehydration; J20.9 Acute bronchitis, unspecified; I10 Essential (primary) hypertension; Z86.718 Personal history of other venous thrombosis and embolism; Z90.49 Acquired absence of other specified parts of digestive tract
CPT/HCPCS: 36415; 71020; 74181; 76705; 78227; 80048; 80053; 81001; 82150; 82962; 83036; 83690; 85025; 85610; 85730; 93005; 93010; 96372; 96374; 96375; 99285; A9537; J0456; J0500; J1650; J1815; J2405; J2805; J3010; J7030; J7042; J7050